=== PATIENT | male | born 1995 | race Caucasian/White ===

== ENCOUNTER → 2017-05-14 13:02 | Emergency (ER) | payer OTHER ==
[2017-05-14 13:11] VITALS: BP 128/71
--- NOTE | 2017-05-14 14:04 | ED ---
Skin Complaint - HPI Summary HPI Summary: Patient presents to the ED with CC of left cheek abscess. He states he has had the abscess for 3 months which comes and goes with abx. He has only been on penicillin and last dose taken 2 days ago after taking the medication for 1 month. He notes to the abscess slowly growing again since discontinuing the medication. He states the previous walk-in clinics have never cultured the area. He denies fevers, sweats, chills or weakness. He notes to a tooth abscess on the ilsilateral side under the area of the cheek where the abscess occurs, but that also has been controlled with penicillin. He is otherwise healthy, takes no medications, does not smoke and denies other complaints. Denies hx of MRSA or other skin infections. He states the area will spontaneously drain every few days. - History of Current Complaint Chief Complaint: EDRashSkinAbscess Time Seen by Provider: 05/14/17 13:27 Stated Complaint: ABCESS Hx Obtained From: Patient Timing: Constant Onset Severity: Moderate Current Severity: Moderate Pain Intensity: 0 Skin Location: Other: - left side of cheek Alleviating Symptom(s): Nothing PMH/Surg Hx/FS Hx/Imm Hx Previously Healthy: Yes - Immunization History Hx Pertussis Vaccination: No Immunizations Up to Date: Unable to Obtain/Confirm Infectious Disease History: No Infectious Disease History: Denies: Traveled Outside the [place] in Last 30 Days - Social History Occupation: Employed Full-time Lives: With Family Alcohol Use: None Hx Substance Use: No Substance Use Type: Reports: None Hx Tobacco Use: No Smoking Status (MU): Never Smoked Tobacco Review of Systems Constitutional: Negative Negative: Fever, Chills, Fatigue Eyes: Negative ENT: Negative Positive: Palpitations Respiratory: Negative Positive: no symptoms reported, see HPI Musculoskeletal: Negative Positive: Other - left cheek abscess which has spontaneously drained Neurological: Negative All Other Systems Reviewed And Are Negative: Yes Physical Exam Triage Information Reviewed: Yes Vital Signs On Initial Exam: Initial Vitals Temp Pulse Resp BP Pulse Ox 97.2 F 80 16 128/71 99 05/14/17 13:07 05/14/17 13:07 05/14/17 13:07 05/14/17 13:07 05/14/17 13:07 Vital Signs Reviewed: Yes Appearance: Positive: Well-Appearing, Well-Nourished Skin: Positive: Warm, Skin Color Reflects Adequate Perfusion, Other - left cheek abscess Head/Face: Positive: Normal Head/Face Inspection Eyes: Positive: EOMI, CALVIN, Conjunctiva Clear Neck: Positive: Supple, No Lymphadenopathy Respiratory/Lung Sounds: Positive: Clear to Auscultation, Breath Sounds Present Cardiovascular: Positive: Normal, RRR, Pulses are Symmetrical in both Upper and Lower Extremities Musculoskeletal: Positive: Strength/ROM Intact Neurological: Positive: Sensory/Motor Intact, Speech Normal Psychiatric: Positive: Normal Diagnostics - Vital Signs Vital Signs Temp Pulse Resp BP Pulse Ox 05/14/17 13:07 97.2 F 80 16 128/71 99 - Laboratory Lab Statement: Any lab studies that have been ordered have been reviewed, and results considered in the medical decision making process. Course/Dx - Course Course Of Treatment: Patient evaluated for left cheek abscess. He notes to 3 months of abscess which will spontaneously drain and reoccur despite being on 3 months antibiotics. Last dose 2 days ago and now the abscess is starting to re- occur. The area is over the L cheek is slightly indented without large abscess to drain. During physical exam, the area begins to spontaneously drain although there is no pocket or fluctuating fluid area. The wound was cultured. Patient is given Bactrim. Discussed treatment options and the need for follow up with dermatology if symptoms worsen or recur. Bactrim is prescribed to cover MRSA. Will call if change of abx is needed. Medications were reveiwed with patient. Encouarged to follow up with PCP or return to ED for worsening symptoms. Return precautions given. Patient understands and agrees with plan. Ok for discharge. - Differential Diagnoses - Skin Complaint Differential Diagnoses: Abscess, Cellulitis - Diagnoses Provider Diagnoses: Facial abscess Discharge - Discharge Plan Condition: Stable Disposition: HOME Prescriptions: Sulfamethox/Trimethoprim DS* [Bactrim DS 800/160 TAB*] 1 tab PO BID #14 tab MDD 2 Patient Education Materials: Abscess (ED) Referrals: Carlie Lopez [Medical Doctor] - Additional Instructions: Warm soaks to the cheek several times per day Use Bactrim twice daily for 7 days Follow up with dermatology for further evaluation Will call if change of abx is needed or if MRSA is identified [facility] Address: [facility] [address], [place] [address]
--- NOTE | 2017-05-17 12:16 | ED ---
Progress - Progress Note Progress Note: Wound cx neg for MRSA, Staph aureus - normal aquiles identified. Pt started on bactrim. Attempted to call for f/u and inform him he could stop taking bactrim. Answering message indicates the number is not in service. Pt was provided with discharge instructions, including how to f/u w/ dermatology as well as when to return to ED. No additional action necessary at this time. Course/Dx - Course Course Of Treatment: Patient evaluated for left cheek abscess. He notes to 3 months of abscess which will spontaneously drain and reoccur despite being on 3 months antibiotics. Last dose 2 days ago and now the abscess is starting to re- occur. The area is over the L cheek is slightly indented without large abscess to drain. During physical exam, the area begins to spontaneously drain although there is no pocket or fluctuating fluid area. The wound was cultured. Patient is given Bactrim. Discussed treatment options and the need for follow up with dermatology if symptoms worsen or recur. Bactrim is prescribed to cover MRSA. Will call if change of abx is needed. Medications were reveiwed with patient. Encouarged to follow up with PCP or return to ED for worsening symptoms. Return precautions given. Patient understands and agrees with plan. Ok for discharge. - Diagnoses Provider Diagnoses: Facial abscess
== END | disposition home or self-care (01) ==
LOC: ED 13:02
DX: L02.01 Cutaneous abscess of face (principal); R00.2 Palpitations
CPT/HCPCS: 87070; 87077; 87205; 87640; 87641; 99282

== ENCOUNTER 2018-07-27 22:58 | Emergency (ER) | payer OTHER ==
[2018-07-27 23:06] VITALS: BP 158/79
== END 2018-07-28 00:55 | disposition left against medical advice (07) ==
LOC: ED 22:58
DX: L02.91 Cutaneous abscess, unspecified (principal); Z53.21 Procedure and treatment not carried out due to patient leaving prior to being seen by health care provider